=== PATIENT | female | born 1985 | race Hispanic/Latino ===

== ENCOUNTER 2018-12-11 07:00 | Outpatient (RCR) | payer BC | END 2018-12-13 | LOC: PT 07:00 | PROVIDERS: ATTEND Orthopaedic Surgery | DX: M75.32 Calcific tendinitis of left shoulder (principal); M75.22 Bicipital tendinitis, left shoulder; M25.512 Pain in left shoulder; M62.81 Muscle weakness (generalized); M25.612 Stiffness of left shoulder, not elsewhere classified ==